=== PATIENT | female | born 1955 | race Hispanic/Latino ===

== ENCOUNTER → 2018-05-26 | Outpatient (CLI) | payer OTHER | END | disposition home or self-care (01) | LOC: RAH 07:58 | PROVIDERS: ATTEND Internal Medicine Gastroenterology | DX: K76.0 Fatty (change of) liver, not elsewhere classified (principal); K74.3 Primary biliary cirrhosis; N28.1 Cyst of kidney, acquired; E78.5 Hyperlipidemia, unspecified | CPT/HCPCS: 76700; 93975 ==

== ENCOUNTER → 2021-02-12 | Outpatient (CLI) | payer OTHER | END | disposition home or self-care (01) | LOC: RAH 11:00 | PROVIDERS: ATTEND Internal Medicine | DX: R59.0 Localized enlarged lymph nodes (principal) | CPT/HCPCS: 76536 ==

== ENCOUNTER → 2021-02-23 | Outpatient (CLI) | payer OTHER ==
[2021-02-23 08:34] LABS: INR 0.96 (0.85-1.15); PROTHROMBIN TIME 10.5 SEC (9.6-11.6)
[2021-02-23 08:35] LABS: PARTIAL THROMBOPLASTIN TIME 27.5 SEC (26.3-35.5)
== END | disposition home or self-care (01) ==
LOC: RAH 07:19
PROVIDERS: ATTEND Internal Medicine
DX: R59.0 Localized enlarged lymph nodes (principal); J44.9 Chronic obstructive pulmonary disease, unspecified; I10 Essential (primary) hypertension; E03.9 Hypothyroidism, unspecified; E78.5 Hyperlipidemia, unspecified; F33.0 Major depressive disorder, recurrent, mild; I48.91 Unspecified atrial fibrillation; M85.80 Other specified disorders of bone density and structure, unspecified site; E78.00 Pure hypercholesterolemia, unspecified; Z79.01 Long term (current) use of anticoagulants; Z83.3 Family history of diabetes mellitus; Z86.010 Personal history of colon polyps; Z82.49 Family history of ischemic heart disease and other diseases of the circulatory system; Z80.9 Family history of malignant neoplasm, unspecified; Z79.899 Other long term (current) drug therapy
CPT/HCPCS: 36415; 38505; 76942; 85610; 85730; 87071; 87205 ×2; 88305; C1887

== ENCOUNTER → 2021-11-07 | Outpatient (CLI) | payer OTHER ==
[~2021-11-07] MED LIST: IOHEXOL-350 75 ML VIAL IV ONE
== END | disposition home or self-care (01) ==
LOC: RAH 10:12
PROVIDERS: ATTEND Internal Medicine
DX: R07.81 Pleurodynia (principal); R55 Syncope and collapse
CPT/HCPCS: 70496; 71275; Q9967 ×2

== ENCOUNTER → 2022-07-23 | Outpatient (CLI) | payer OTHER | END | disposition home or self-care (01) | LOC: RAH 10:14 | PROVIDERS: ATTEND Internal Medicine Gastroenterology | DX: R10.11 Right upper quadrant pain (principal) | CPT/HCPCS: 78227; A9537 ==

== ENCOUNTER 2023-07-02 08:49 | Day surgery (SDC) | payer OTHER ==
[2023-06-20 11:30] VITALS: BP 135/91; PULSE 88; RESP 20
[2023-06-30 13:43] VITALS: BP 141/80; PULSE 88; RESP 17
[~2023-07-02] VITALS: Ht 157.5 cm; Wt 77.7 kg
[2023-07-02] VITALS (9 sets, daily range): BP systolic 98–127; BP diastolic 62–86; PULSE 71–108; RESP 12–20
[~2023-07-02 08:49] MED LIST changes: +APIX5TAB PO; +ASCO500C18 PO; +CHOL100020 PO; +DILT240C98 PO; +FURO20TA4 PO; -IOHEXOL-350 75 ML VIAL IV ONE; +LEVO25CA4 PO; +ROSU5TAB12 PO; +URSO500T10 PO
[2023-07-02] MEDS ORDERED: PROPOFOL 10 MG/ML 20ML VIAL IV ONE (10:45)
== END 2023-07-02 12:25 | disposition home or self-care (01) ==
LOC: ENDO 08:49 → DAH 08:49 → ENDO 12:25
PROVIDERS: ATTEND Internal Medicine Gastroenterology
DX: Z12.11 Encounter for screening for malignant neoplasm of colon (principal); D12.5 Benign neoplasm of sigmoid colon; E78.5 Hyperlipidemia, unspecified; E03.9 Hypothyroidism, unspecified; I48.91 Unspecified atrial fibrillation; J45.909 Unspecified asthma, uncomplicated; M19.90 Unspecified osteoarthritis, unspecified site; Z80.8 Family history of malignant neoplasm of other organs or systems; Z82.3 Family history of stroke; Z88.0 Allergy status to penicillin; Z82.49 Family history of ischemic heart disease and other diseases of the circulatory system; Z79.899 Other long term (current) drug therapy; Z79.890 Hormone replacement therapy; Z98.890 Other specified postprocedural states
CPT/HCPCS: 45380; J2704; A4620; A4215 ×2; A4223; A7002; A4222; A4221; A4663; A4216; J7030; A4606; J3490

== ENCOUNTER → 2023-09-26 | Outpatient (CLI) | payer OTHER ==
[~2023-09-26] MED LIST changes: -DILT240C98 PO; +MULT-1258 PO; +PREMC VG; +SOTA120T PO
== END | disposition home or self-care (01) ==
LOC: RAH 10:02
PROVIDERS: ATTEND Internal Medicine
DX: E04.2 Nontoxic multinodular goiter (principal); R59.0 Localized enlarged lymph nodes
CPT/HCPCS: 76536

== ENCOUNTER 2023-12-19 18:24 | Emergency (ER) | payer OTHER ==
[~2023-12-19] VITALS: Ht 157.5 cm; Wt 76.2 kg
[2023-12-19 18:55] LABS: HEMATOCRIT 42.6 % (36-48); MEAN CORPUSCULAR HEMOGLOBIN 31.3 pg (27.0-33.0); RED BLOOD CELL COUNT(AUTO) 4.63 MIL/uL (4.00-5.50); RED CELL DISTRIBUTION WIDTH 13.8 % (11.0-15.5); WHITE BLOOD COUNT (AUTO) 7.3 K/uL (4.8-10.8)
[2023-12-19 19:06] LABS: CREATININE 0.9 mg/dL (0.5-1.0)
[2023-12-19 19:10] LABS: BILIRUBIN,TOTAL 0.3 mg/dL (0.2-1.0); TOTAL PROTEIN, SERUM 8.2 g/dL (6.0-8.3)
[2023-12-19 19:22] LABS: APPEARANCE,URINE CLEAR (CLEAR); BILIRUBIN,URINE NEGATIVE (NEGATIVE); COLOR,URINE LIGHT-YELLOW (YELLOW); GLUCOSE, URINE (UA) NEGATIVE (NEGATIVE); KETONES,URINE NEGATIVE (NEGATIVE); LEUKOCYTE ESTERASE ,URINE NEGATIVE Leu/uL (NEGATIVE); NITRATE,URINE NEGATIVE (NEGATIVE); OCCULT BLOOD,URINE SMALL (NEGATIVE); PROTEIN,URINE 10 mg/dL (NEGATIVE); UROBILINOGEN,URINE 0.2 mg/dL (0.2-1.0)
[2023-12-19 19:24] LABS: ADD UA MICROSCOPIC YES
[2023-12-19 19:25] LABS: MUCUS,URINE RARE LPF (None Seen); SQUAMOUS EPITHELIAL CELL,UR RARE /HPF (0-2); WBC,URINE 0-1 /HPF (0-1)
[2023-12-19] MEDS: KETOROLAC 30MG VIAL (30MG/ML) IVP ONE (19:38)
[2023-12-19] MEDS: 0.9%NACL 1000ML 1,000 ML IV ONE (19:38)
[2023-12-19] MEDS ORDERED: IBUP-2077 PO (21:00)
[2023-12-19] MEDS ORDERED: CYCL-309 PO (21:00)
[2023-12-19 21:26] VITALS: BP 151/113; PULSE 98; RESP 18; O2SAT 97
== END 2023-12-19 21:26 | disposition home or self-care (01) ==
LOC: EDH 18:24
DX: S39.012A Strain of muscle, fascia and tendon of lower back, initial encounter (principal); E78.00 Pure hypercholesterolemia, unspecified; I10 Essential (primary) hypertension; I48.91 Unspecified atrial fibrillation; Z79.01 Long term (current) use of anticoagulants; Z88.0 Allergy status to penicillin; X58.XXXA Exposure to other specified factors, initial encounter; Y93.89 Activity, other specified; Y92.89 Other specified places as the place of occurrence of the external cause; Y99.8 Other external cause status
CPT/HCPCS: 99285; 74176; 96374; 96361; 80053; 85027; 81001; 36415; J7030; J1885

== ENCOUNTER 2024-01-06 07:53 | Observation (INO) | payer OTHER ==
[2024-01-02 10:38] LABS: BASOPHILS # (AUTO) 0.08 K/uL (0.00-0.20); BASOPHILS % (AUTO) 1.4 % (0.0-5.0); EOSINOPHILS # (AUTO) 0.14 K/uL (0.00-0.70); EOSINOPHILS % (AUTO) 2.4 % (0.0-8.0); HEMATOCRIT 43.7 % (36-48); IMMATURE GRANULOCYTE ABSOLUTE 0.01 K/uL (0-1); LYMPHOCYTES # (AUTO) 2.3 K/uL (1.0-4.8); LYMPHOCYTES % (AUTO) 39.5 % (21.0-51.0); MEAN CORPUSCULAR HEMOGLOBIN 31.4 pg (27.0-33.0); MEAN CORPUSCULAR HGB CONC 34.1 g/dL (32.0-36.0); MEAN CORPUSCULAR VOLUME 92.2 fL (79-99); MONOCYTES # (AUTO) 0.5 K/uL (0.1-1.0); MONOCYTES % (AUTO) 8.2 % (3.0-13.0); NEUTROPHILS # (AUTO) 2.8 K/uL (1.8-7.7); NEUTROPHILS % (AUTO) 48.3 % (40.0-77.0); PLATELET COUNT (AUTO) 172 K/uL (130-400); RED BLOOD CELL COUNT(AUTO) 4.74 MIL/uL (4.00-5.50); WHITE BLOOD COUNT (AUTO) 5.9 K/uL (4.8-10.8)
[2024-01-02 10:42] VITALS: BP 121/77; PULSE 91; RESP 18
[2024-01-02 10:50] LABS: CREATININE 0.8 mg/dL (0.5-1.0); POTASSIUM 4.3 mmol/L (3.5-5.1)
[2024-01-02 10:52] LABS: INR 0.96 (0.85-1.15); PROTHROMBIN TIME 11.4 SEC (9.6-11.6)
[2024-01-02 10:54] LABS: PARTIAL THROMBOPLASTIN TIME 33.6 SEC (26.3-35.5)
[2024-01-06] VITALS (25 sets, daily range): BP systolic 114–162; BP diastolic 66–95; PULSE 52–120; RESP 13–18; O2SAT 97
[~2024-01-06] VITALS: Ht 160 cm; Wt 81.1 kg
[~2024-01-06 07:53] MED LIST changes: -ASCO500C18 PO; +DILT30TA3 PO; +ESCI-8 PO; -PREMC VG
[2024-01-06] MEDS: 0.9%NACL 1000ML 1,000 ML IV ONE (09:36)
[2024-01-06] MEDS ORDERED: HEPARIN 10,000 UNIT/10ML (1,000 UNIT/ML) VIAL ONE (11:09)
[2024-01-06] MEDS ORDERED: LIDOCAINE HCL 400MG/20ML VIAL ONE (11:09)
[2024-01-06] MEDS ORDERED: PROPOFOL 10 MG/ML 20ML VIAL IV ONE (11:54)
[2024-01-06] MEDS ORDERED: MIDAZOLAM HCL 1 MG/ML 2ML VIAL ONE (11:54)
[2024-01-06] MEDS ORDERED: ROCURONIUM BROMIDE 10MG/1ML 5ML VL ONE (11:54)
[2024-01-06] MEDS ORDERED: FENTANYL CITRATE PF 50 MCG/1 ML 2ML VIAL ONE ×2 (11:55→17:14)
[2024-01-06] MEDS ORDERED: PHENYLEPHRINE HCL 10 MG/ML 1ML VIAL IV ONE (12:19)
[2024-01-06] MEDS ORDERED: PROTAMINE SULFATE 10 MG/ML 5 ML VIAL ONE (17:00)
[2024-01-06] MEDS ORDERED: EPHEDRINE SULFATE 50 MG/ML AMPULE ONE (17:02)
[2024-01-06] MEDS ORDERED: GLYCOPYRROLATE 0.2 MG/ML 5 ML VIAL ONE (17:13)
[2024-01-06] MEDS ORDERED: ONDANSETRON 4MG INJ ONE (17:14)
[2024-01-06] MEDS ORDERED: NEOSTIGMINE METHYLSULFATE 1MG/ML IV ONE (17:14)
[2024-01-06 17:36] LABS: ABG BASE EXCESS -8.5 mmol/L (-2.0-3.0); ABG OXYGEN SATURATION 93.6 % (95.0-99.0); ABG PCO2 41 mmHg (32-45); ABG PH 7.265 (7.35-7.450); CARBON MONOXIDE 0.6; HHb 6.4; PO2, ARTERIAL BG 74.4 mmHg (83.0-108.0); VENT MODE, BG OR VENT (ROOM AIR)
[2024-01-06] MEDS ORDERED: SODIUM BICARB 50MEQ 50ML VIAL 100 ML ONE (17:39)
[2024-01-06 17:52] LABS: ABG BASE EXCESS 1.7 mmol/L (-2.0-3.0); ABG HCO3 25.8 mmol/L (21.0-28.0); ABG OXYGEN SATURATION 98.6 % (95.0-99.0); ABG PCO2 39 mmHg (32-45); ABG PH 7.439 (7.35-7.450); CARBON MONOXIDE 0.4; HHb 1.4; PO2, ARTERIAL BG 135.2 mmHg (83.0-108.0); VENT MODE, BG OR VENT (ROOM AIR)
[2024-01-06] MEDS ORDERED: FUROSEMIDE 20MG VIAL ONE (17:58)
[2024-01-06 19:23] LABS: ABG OXYGEN SATURATION 93.2 % (95.0-99.0); ABG PCO2 44 mmHg (32-45); ABG PH 7.334 (7.35-7.450); CARBON MONOXIDE 0.3; HHb 6.8; PO2, ARTERIAL BG 68.8 mmHg (83.0-108.0); VENT MODE, BG NC,28 (ROOM AIR)
[2024-01-06] MEDS ORDERED: SOTALOL HCL 80 MG TABLET PO SCH (21:00)
[2024-01-06] MEDS: URSODIOL 500 MG PO SCH (21:00)
[2024-01-06] MEDS: ATORVASTATIN 10 MG TABLET PO SCH (22:37)
[2024-01-06] MEDS: PANTOPRAZOLE 40 MG TAB DR PO SCH (22:37)
[2024-01-06] MEDS: SUCRALFATE 1 GM TABLET PO SCH (22:38)
[2024-01-06] MEDS: DILTIAZEM 60MG TAB PO SCH (22:38)
[2024-01-06] MEDS: APIXABAN 5 MG TABLET PO SCH (22:39)
[2024-01-07] VITALS (10 sets, daily range): BP systolic 107–132; BP diastolic 62–83; PULSE 68–73; RESP 18–20; O2SAT 94–97
[2024-01-07 05:45] LABS: HEMATOCRIT 41.5 % (36-48); MEAN CORPUSCULAR HGB CONC 33.5 g/dL (32.0-36.0); MEAN CORPUSCULAR VOLUME 95.6 fL (79-99); PLATELET COUNT (AUTO) 145 K/uL (130-400); RED BLOOD CELL COUNT(AUTO) 4.34 MIL/uL (4.00-5.50); RED CELL DISTRIBUTION WIDTH 14.8 % (11.0-15.5); WHITE BLOOD COUNT (AUTO) 9.4 K/uL (4.8-10.8)
[2024-01-07 05:51] LABS: CREATININE 0.8 mg/dL (0.5-1.0); POTASSIUM 3.8 mmol/L (3.5-5.1)
[2024-01-07] MEDS: SUCRALFATE 1 GM TABLET PO SCH (06:18)
[2024-01-07] MEDS: PANTOPRAZOLE 40 MG TAB DR PO SCH (06:18)
[2024-01-07 06:45] LABS: LYMPHOCYTES % (MANUAL) 21 % (22-44); SEGMENTED NEUTROPHILS % 79 % (40-70); TOTAL CELLS COUNTED 100
[2024-01-07 06:46] LABS: MAN.DIFF COMMENT-IMPRESSION MANUAL DIFFERENTIAL; PLATELET MORPHOLOGY COMMENT ADEQUATE; WBC MORPHOLOGY NORMAL
[2024-01-07] MEDS: LEVOTHYROXINE 25 MCG TABLET PO SCH (08:43)
[2024-01-07] MEDS: MULTIVITAMIN WITH MINERALS TABLET PO SCH (09:00)
[2024-01-07] MEDS: CHOLECALCIFEROL 25 MCG PO SCH (09:00)
[2024-01-07] MEDS: CITALOPRAM 20 MG TABLET PO SCH (09:56)
[2024-01-07] MEDS: FUROSEMIDE 20 MG TABLET PO SCH (09:56)
[2024-01-07] MEDS ORDERED: SUCR1TAB2 PO (10:56)
[2024-01-07] MEDS ORDERED: PANT40TA55 PO (10:56)
[2024-01-07] MEDS ORDERED: NITROGLYCERIN 0.4 MG SL TAB SL PRN (18:45)
[2024-01-07] MEDS: COLCHICINE 0.6 MG TABLET PO SCH (20:26)
[2024-01-08 00:30] VITALS: BP 102/64; PULSE 66; RESP 18
[2024-01-08 03:30] VITALS: BP 122/78; PULSE 74; RESP 20
[2024-01-08 07:08] VITALS: BP 132/82; PULSE 71; RESP 20
[2024-01-08] MEDS ORDERED: ACETAMINOPHEN 325 MG TAB PO PRN (08:30)
[2024-01-08] MEDS: REGADENOSON 0.4 MG/5 ML PF SYG IVP SCH (12:02)
[2024-01-08 12:25] VITALS: BP 138/76; PULSE 80; RESP 18
[2024-01-08 15:17] VITALS: BP 132/76; PULSE 80; RESP 20
[2024-01-08] MEDS ORDERED: COLC0.6C3 PO (15:36)
== END 2024-01-08 17:15 | disposition home or self-care (01) ==
LOC: DAH 07:53 → 2AH 07:54
PROVIDERS: ADMIT Internal Medicine Cardiovascular Disease; ATTEND Internal Medicine Cardiovascular Disease
DX: I48.0 Paroxysmal atrial fibrillation (principal); I48.3 Typical atrial flutter; I10 Essential (primary) hypertension; E78.5 Hyperlipidemia, unspecified; F41.9 Anxiety disorder, unspecified; E03.9 Hypothyroidism, unspecified; Z86.73 Personal history of transient ischemic attack (TIA), and cerebral infarction without residual deficits; Z79.899 Other long term (current) drug therapy
CPT/HCPCS: 80048 ×2; 85025 ×2; 85610; 85730; 36415 ×2; 93005 ×2; 93655; 93656; 82435 ×3; 82947 ×3; 84132 ×3; 84295 ×3; 82803 ×3; 85347 ×8; 85018 ×3; 83605 ×3; 36600; 93017; 78452; A4344; C1894 ×4; C1732 ×2; C1893; A4215 ×2; C1731; A4649 ×2; G0378 ×43; J3010 ×2; J3490 ×5; J7030; J2720; J1644 ×2; J2250; J2704; J2405; J1940; J2371; A4223 ×3; A4222; A4221; A4663; A4216; A4606; J2785; A9500 ×2; 96374; J2710

== ENCOUNTER 2024-08-04 06:17 | Day surgery (SDC) | payer OTHER ==
[2024-08-04] VITALS (10 sets, daily range): BP systolic 116–154; BP diastolic 69–87; PULSE 58–67; RESP 13–21; TEMP 97.3–97.9
[~2024-08-04] VITALS: Ht 160 cm; Wt 76.7 kg
[~2024-08-04 06:17] MED LIST changes: +ALBU18HF7 IH; +ASCO500T20 PO; +DILT120C78 PO; -DILT30TA3 PO; -FURO20TA4 PO; -MULT-1258 PO; +PANT40TA54 PO; -ROSU5TAB12 PO; +ROSU5TAB51 PO; -SOTA120T PO; +SUCR1TAB2 PO; +[UNRECOGNIZED DRUG - CODE] PO
[2024-08-04] MEDS: 0.9%NACL 1000ML 1,000 ML IV ONE (07:22)
[2024-08-04] MEDS ORDERED: proPOFol 10 MG/ML 20ML VIAL IV ONE ×2 (08:35)
== END 2024-08-04 09:48 | disposition home or self-care (01) ==
LOC: DAH 06:17 → ENDO 06:17
PROVIDERS: ATTEND Internal Medicine
DX: K74.3 Primary biliary cirrhosis (principal); K29.50 Unspecified chronic gastritis without bleeding; K31.89 Other diseases of stomach and duodenum; K44.9 Diaphragmatic hernia without obstruction or gangrene; I85.10 Secondary esophageal varices without bleeding; E03.9 Hypothyroidism, unspecified; K76.0 Fatty (change of) liver, not elsewhere classified; K82.8 Other specified diseases of gallbladder; J45.909 Unspecified asthma, uncomplicated; K21.9 Gastro-esophageal reflux disease without esophagitis; I48.91 Unspecified atrial fibrillation; E78.5 Hyperlipidemia, unspecified; Z86.73 Personal history of transient ischemic attack (TIA), and cerebral infarction without residual deficits; Z88.0 Allergy status to penicillin; M19.90 Unspecified osteoarthritis, unspecified site; Z86.0100 Personal history of colon polyps, unspecified; Z79.899 Other long term (current) drug therapy
CPT/HCPCS: 43239; J7030 ×2; J2704; A4620; A4223; A4215; A7002; A4222; A4221; A4663; A4606; J3490

== ENCOUNTER → 2025-03-09 | Outpatient (CLI) | payer OTHER ==
[~2025-03-09] MED LIST changes: -LEVO25CA4 PO; +LEVO25CA5 PO; -URSO500T10 PO; +URSO500T7 PO
--- NOTE | 2025-03-10 08:12 | HMCIMG ---
EXAMINATION: ULTRASOUND OF THE THYROID. CLINICAL HISTORY: Non-toxic single thyroid nodule. COMPARISON: Ultrasound of the thyroid dated 09/26/2023. TECHNIQUE: Transverse and longitudinal images were obtained through both lobes and the isthmus of the thyroid. FINDINGS: The thyroid gland is normal in caliber with homogenous tissue echotexture. The right thyroid lobe measures 5.0 x 1.8 x 1.5 cm and the left thyroid lobe measures 3.2 x 1.0 x 1.6 cm in the craniocaudal, AP, and transverse dimensions respectively. The isthmus measures 0.30 cm in AP dimension. Right lobe: There is a hypoechoic solid nodule that measures 1.4 x 0.7 x 1.0 cm at the lower pole (TR4). There is a hypoechoic solid nodule that measures 0.3 x 0.3 x 0.4 cm at the lower pole (TR4). There is a hypoechoic solid nodule that measures 0.4 x 0.2 x 0.4 cm at the upper pole (TR4). Left lobe: There is an isoechoic solid nodule that measures 1.0 x 0.5 x 0.8 cm at the mid pole (TR3). There are multiple lymph nodes, the largest measure 0.8 x 0.4 x 0.7 cm in the right neck and 1.7 x 0.6 x 1.2 cm in the left neck. Hilar echoes are maintained. No increased vascularity. IMPRESSION: Nodules in both lobes of the thyroid. Bilateral cervical lymph nodes. TI-RADS follow up recommendations: TR1: no FNA required TR2: no FNA required TR3: more than or equal to 1.5 cm follow up, more than or equal to 2.5 cm FNA follow up: 1, 3 and 5 years TR4: more than or equal to 1.0 cm follow up, more than or equal to 1.5 cm FNA follow up: 1, 2, 3 and 5 years TR5: more than or equal to 0.5 cm follow up, more than or equal to 1.0 cm FNA annual follow up for up to 5 years /[place]
== END | disposition home or self-care (01) ==
LOC: RAH 11:34
PROVIDERS: ATTEND Otolaryngology
DX: E04.2 Nontoxic multinodular goiter (principal); R59.0 Localized enlarged lymph nodes
CPT/HCPCS: 76536

== ENCOUNTER → 2025-06-29 | Outpatient (CLI) | payer OTHER | END | disposition home or self-care (01) | LOC: RESP 14:23 | PROVIDERS: ATTEND Internal Medicine Cardiovascular Disease | DX: I48.19 Other persistent atrial fibrillation (principal); R06.09 Other forms of dyspnea | CPT/HCPCS: 94010; 94729 ==